=== PATIENT | male | born 1970 | race Caucasian/White ===

== ENCOUNTER 2020-05-25 20:46 | Emergency (ER) | payer OTHER ==
--- NOTE | 2020-05-25 21:05 | PDOC ---
Rapid Medical Evaluation Chief Complaint: Pain, Acute Time Seen by Provider: 05/25/20 20:51 Medical Evaluation: Allergies Allergy/AdvReac Type Severity Reaction Status Date / Time No Known Allergies Allergy Unverified 01/20/14 11:59 05/25/20 21:01 50 year old male c/o generalized abdominal pain and diarrhea. patient reports that he works as [employer] also with rash to b/l forearm from poison Cely. Last Vital Signs Temp Pulse Resp BP Pulse Ox 98.1 F 87 20 121/82 100 05/25/20 21:04 05/25/20 21:04 05/25/20 21:04 05/25/20 21:04 05/25/20 21:04 Last Vital Signs Temp Pulse Resp BP Pulse Ox 98.1 F 87 20 121/82 100 05/25/20 21:04 05/25/20 21:04 05/25/20 21:04 05/25/20 21:04 05/25/20 21:04 Patient alert ox3. erythema to b/l forearm A: abdominal pain; poison cely rash P: ua Discharge Disposition - Diagnosis Poison cely dermatitis Abdominal pain Qualifiers: Abdominal location: generalized Qualified Code(s): R10.84 - Generalized abdominal pain - Referrals - Patient Instructions - Post Discharge Activity
[2020-05-25 21:07] VITALS: BMI 26.6
--- NOTE | 2020-05-25 22:36 | PDOC ---
History of Present Illness - General Chief Complaint: Pain Stated Complaint: ABD PAIN Time Seen by Provider: 05/25/20 20:51 History Source: Patient Exam Limitations: No Limitations - History of Present Illness Initial Comments: 05/25/20 22:36 Sergio Yao is a 50M with PMH HTN, HLD, pre-DM presenting with abdominal pain and rash. 4 days [employer] patient ate [employer] and had diffuse abdominal pain, comes and goes, squeezing, associated with lower back/chest pain. 2x NBNB N/V. Denies C/D, fever. Tolerating PO. Says he had this problem 5 years ago and it was found that he had possible fatty liver but never had this evaluated, went to [place] soon after and never followed up. Denies any cardiac history, denies SOB, but has chest pain across his entire chest. 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 Denies NSAID use, took one Tylenol a few days ago. No urinary symptoms. Also was gardening yesterday and had new onset rash to both arms and legs, very itchy, did not take Benadryl. Allergies to peanuts and shellfish, denies exposure. No other sick contacts. No PSH. NKDA. Denies alcohol/drug/tobacco use. Past History - Medical History Allergies/Adverse Reactions: Allergies Allergy/AdvReac Type Severity Reaction Status Date / Time shellfish derived Allergy Verified 05/25/20 21:03 - Psycho-Social/Smoking History Smoking History: Never smoked - Substance Abuse Hx (Audit-C & DAST Scrn) How often the patient has a drink containing alcohol: Never Score: In Men: 4 or > Positive; In Women: 3 or > Positive: 0 Screen Result (Pos requires Nsg. Audit-10AR): Negative Review of Systems - Review of Systems Constitutional: No: Symptoms Reported HEENTM: No: Symptoms Reported Respiratory: No: Symptoms reported Cardiac (ROS): No: Symptoms Reported ABD/GI: Yes: Nausea, Poor Appetite, Poor Fluid Intake, Vomiting. No: Constipated, Diarrhea : No: Symptoms Reported Musculoskeletal: No: Symptoms Reported Integumentary: Yes: Pruritus, Rash Neurological: No: Symptoms reported Endocrine: No: Symptoms Reported Hematologic/Lymphatic: No: Symptoms Reported All Other Systems: Reviewed and Negative *Physical Exam - Vital Signs Last Vital Signs Temp Pulse Resp BP Pulse Ox 98.1 F 87 20 121/82 98 05/25/20 21:04 05/25/20 21:04 05/25/20 21:04 05/25/20 21:04 05/25/20 21:49 - Physical Exam General Appearance: Yes: Nourished, Appropriately Dressed, Obese. No: Apparent Distress HEENT: positive: EOMI, CELESTINO, Normal Voice, Symmetrical, Pharynx Normal, Hearing Grossly Normal. negative: Scleral Icterus (R), Scleral Icterus (L), Pharyngeal Erythema, Tonsillar Exudate Neck: positive: Trachea midline, Normal Thyroid, Supple. negative: Tender, Rigid, Stridor, Lymphadenopathy (R), Lymphadenopathy (L) Respiratory/Chest: positive: Chest Tender (entire chest TTP), Lungs Clear, Normal Breath Sounds. negative: Respiratory Distress, Accessory Muscle Use, Stridor, Wheezing Cardiovascular: positive: Regular Rhythm, Regular Rate. negative: Murmur Gastrointestinal/Abdominal: positive: Normal Bowel Sounds, Flat, Soft. negative: Tender, Organomegaly, Protuberent, Hernia, Mass Musculoskeletal: positive: Normal Inspection. negative: CVA Tenderness, CVA Tenderness (R), CVA Tenderness (L), Decreased Range of Motion Extremity: positive: Normal Capillary Refill, Normal Inspection, Normal Range of Motion, Pelvis Stable. negative: Tender, Swelling, Calf Tenderness Integumentary: positive: Rash (forearms and shins, spare hands and feet, some to chest, appears like contact dermatitis, no wheal/flare or bullae, diffuse erythema with irregular plaques). negative: Cyanotic, Jaundice Neurologic: positive: Fully Oriented, Alert, Normal Mood/Affect, Normal Response ED Treatment Course - LABORATORY CBC & Chemistry Diagram: 05/25/20 23:00 05/25/20 23:00 - RADIOLOGY Radiology Studies Ordered: Category Date Time Status CHEST X-RAY PORTABLE* [RAD] Stat Radiology 05/25/20 22:13 Taken Medical Decision Making - Medical Decision Making 05/26/20 02:40 Patient presents with abdominal pain, history of fatty liver, HTN, HLD presenting with abdominal pain and rash. Patient has whole body pain, mostly abdominal, related to movement, recent MSK strain. Also chest pain, no prior cardiac events, very reproducible. Rash to forearms consistent with contact dermatitis, giving Benadryl 25mg IV. Evaluating for pancreatitis, GB pathology, colitis, diverticulitis, atypical ACS broadly via CBC/CMP/CP/ECG/CXR/lipase/UA/UC, and CTAP with IV contrast. Zofran and Protonix for nausea and GI upset. Labs notable for: - CBC WNL - BMP WNL - ALT 75 - trop negative - UA WNL - lipase WNL CTAP: fatty liver, no other acute pathology 05/26/20 02:40 Patient's abdominal pain resolved, feeling better. VSS. No evidence of acute pathology other than fatty liver. GI f/u given. Stable for discharge home. Discharge - Discharge Information Problems reviewed: Yes Clinical Impression/Diagnosis: Poison santiago dermatitis Abdominal pain Qualifiers: Abdominal location: generalized Qualified Code(s): R10.84 - Generalized abdominal pain Condition: Improved Disposition: HOME - Admission No - Follow up/Referral Referrals: Sara Godfrey MD [Staff Physician] - - Patient Discharge Instructions Patient Printed Discharge Instructions: DI for Abdominal Pain-Adult Additional Instructions: Today you were evaluated for abdominal pain and a rash. Your CT scan and labs do not show any disease needing treatment at this time. Your liver enzymes are elevated, and your CT shows fatty liver, which you should see a GI doctor for. A referral has been given. Your rash is likely from gardening; in the future, wear long sleeves and avoid the plants you were working with, and you can take Benadryl as needed. If you experience any worsening abdominal pain, nausea, vomiting, diarrhea, or any other new or concerning symptoms, please return to the emergency room. - Post Discharge Activity
[2020-05-25] MEDS ORDERED: PANTOPRAZOLE SODIUM 40 MG VIAL IVPUSH ONE (22:46)
[2020-05-25] MEDS ORDERED: ONDANSETRON 4 MG/2 ML VIAL IVPUSH ONE (22:46)
[2020-05-25] MEDS ORDERED: PANTOPRAZOLE SODIUM 40 MG/100 ML BAG IVPB ONE (22:56)
--- NOTE | 2020-05-25 23:01 | PDOC ---
Documentation entered by Larisa Bourgeois SCRIBE, acting as scribe for Eva Granados MD. Eva Granados MD: This documentation has been prepared by the [employer], SCRIBE, under my direction and personally reviewed by me in its entirety. I confirm that the documentation accurately reflects all work, treatment, procedures, and medical decision making performed by me. Attending Attestation - Resident Resident Name: Brian Alberts - ED Attending Attestation I have performed the following: I have examined & evaluated the patient, The case was reviewed & discussed with the resident, I agree w/resident's findings & plan, Exceptions are as noted - HPI HPI: 05/25/20 21:47 The patient is a 50 year old male with a PMH HTN, high cholesterol who presents to the ED for chest, abdominal and back pain x4days. Pt states 4 days ago had [employer] at his friends house when he endorsed sudden onset abdominal pain associated with diffuse chest pain "all over his chest." Pt also reports a rash s/p after gardening yesterday. Allergies: Shellfish derived - Physicial Exam PE: 05/25/20 22:49 50 yo male p/w 4 days of constant b/l flank discomfort nausea,one episode vomiting. no chills,no fever, no diarrhea 05/25/20 22:56 head ncat eyes eomi neck supple lungs no wheezing, no crackles cvs [id number] abdomen no guarding b/l flank tenderness to percussion skin there are some scattered itchy rash on his forearms neuro axox3 - Medical Decision Making 05/26/20 00:36 impression itchy rash on forearms maybe due to poison santiago labs reviewed plan ct scan abd/pel 05/26/20 02:16 ct scan abd/pel: revealed fatty liver Discharge - Discharge Information Problems reviewed: Yes Clinical Impression/Diagnosis: Poison santiago dermatitis Abdominal pain Qualifiers: Abdominal location: generalized Qualified Code(s): R10.84 - Generalized abdominal pain Condition: Improved Disposition: HOME - Follow up/Referral Referrals: Sara Godfrey MD [Staff Physician] - - Patient Discharge Instructions Patient Printed Discharge Instructions: DI for Abdominal Pain-Adult Additional Instructions: Today you were evaluated for abdominal pain and a rash. Your CT scan and labs do not show any disease needing treatment at this time. Your liver enzymes are elevated, and your CT shows fatty liver, which you should see a GI doctor for. A referral has been given. Your rash is likely from gardening; in the future, wear long sleeves and avoid the plants you were working with, and you can take Benadryl as needed. If you experience any worsening abdominal pain, nausea, vomiting, diarrhea, or any other new or concerning symptoms, please return to the emergency room. - Post Discharge Activity
[2020-05-26 00:18] LABS: BASO % 0.8 % (0-2.0); EOS % 1.6 % (0-4.5); HEMOGLOBIN 13.2 GM/dL (11.7-16.9); LYMPH % 45.8 % (8-40); MCH 33.2 pg (25.7-33.7); MCHC 33.9 g/dl (32.0-35.9); MEAN CELL VOLUME 97.8 fl (80-96); MEAN PLT VOLUME 8.5 fl (7.5-11.1); MONO % 11.7 % (3.8-10.2); NEUT % 40.1 % (42.8-82.8); PLATELET COUNT 228 K/MM3 (134-434); RBC 3.98 M/mm3 (4.00-5.60); WHITE BLOOD COUNT 4.5 K/mm3 (4.0-10.0)
[2020-05-26 00:20] LABS: INR 0.99 (0.83-1.09); PROTHROMBIN TIME (PATIENT) 11.7 SEC (9.7-13.0)
[2020-05-26 00:23] LABS: ACTIVATED PTT 28.7 SECONDS (25.2-36.5)
[2020-05-26 00:31] LABS: ALBUMIN 3.6 g/dl (3.4-5.0); ALK PHOS 69 U/L (45-117); ANION GAP 7 MMOL/L (8-16); BILIRUBIN,TOTAL 0.3 mg/dL (0.2-1); BLOOD UREA NITROGEN 20.5 mg/dL (7-18); CALCIUM 8.9 mg/dL (8.5-10.1); CHLORIDE 104 mmol/L (98-107); CO2 27 mmol/L (21-32); CREATININE 0.8 mg/dL (0.55-1.3); GLUCOSE,RANDOM 91 mg/dL (74-106); LIPASE 131 U/L (73-393); POTASSIUM 4.1 mmol/L (3.5-5.1); SGOT/AST 35 U/L (15-37); SGPT/ALT 78 U/L (13-61); SODIUM 138 mmol/L (136-145); TOT PROT 7.3 g/dl (6.4-8.2)
[2020-05-26 01:36] VITALS: TEMP 98.2
[2020-05-26 04:28] LABS: PH,URINE 7.5 (5.0-8.0); URINE APPEARANCE CLEAR; URINE BILIRUBIN NEGATIVE (NEGATIVE); URINE COLOR YELLOW; URINE GLUCOSE (UA) NEGATIVE (NEGATIVE); URINE KETONE NEGATIVE (NEGATIVE); URINE LEUK ESTERASE NEGATIVE (NEGATIVE); URINE NITRITE NEGATIVE (NEGATIVE); URINE PROTEIN NEGATIVE (NEGATIVE)
[2020-05-26 04:51] VITALS: BP 132/88; PULSE 84
== END 2020-05-26 04:52 | disposition home or self-care (01) ==
LOC: JER 20:46
PROC: 3E033NZ Introduction of Analgesics, Hypnotics, Sedatives into Peripheral Vein, Percutaneous Approach (ICD-10-PCS; principal; 2020-05-25)
PROC: 3E033GC Introduction of Other Therapeutic Substance into Peripheral Vein, Percutaneous Approach (ICD-10-PCS; 2020-05-25)
DX: R10.84 Generalized abdominal pain (principal); L23.7 Allergic contact dermatitis due to plants, except food
CPT/HCPCS: 36415; 71045-TC-FY; 74177-TC; 80053; 81003; 82550; 82553; 83690; 83880; 84484; 85025; 85610; 85730; 99285-25

== ENCOUNTER 2022-09-13 11:04 | Emergency (ER) | payer OTHER ==
[2022-09-13 11:16] VITALS: BP 142/92; PULSE 102; RESP 18; TEMP 98.1; BMI 40.3
== END 2022-09-13 11:55 | disposition left against medical advice (07) ==
LOC: JER 11:04
DX: R07.9 Chest pain, unspecified (principal)
CPT/HCPCS: 99281-25